=== PATIENT | female | born 1985 | race Caucasian/White ===

== ENCOUNTER → 2016-07-18 | Outpatient (REF) | payer OTHER ==
[2016-07-18 19:32] LABS: REASON FOR REVIEW COMPREHENSIVE REVIEW
== END ==
LOC: M LAB REF 17:41
PROVIDERS: ATTEND Internal Medicine Medical Oncology
DX: D75.1 Secondary polycythemia (principal)

== ENCOUNTER → 2016-10-05 | Outpatient (REF) | payer OTHER | LOC: M LAB REF 17:17 | PROVIDERS: ATTEND Internal Medicine Medical Oncology | DX: D45 Polycythemia vera (principal) ==

== ENCOUNTER 2019-08-17 15:01 | Emergency (ER) | payer MEDICAID, OTHER, SELFPAY ==
[~2019-08-17] VITALS: Ht 162.6 cm; Wt 59.1 kg
[2019-08-17 15:55] LABS: HEMATOCRIT 51.4 % (36.0-47.0); HEMOGLOBIN 15.1 g/dl (12.0-15.5); MEAN CORPUSCULAR HEMOGLOBIN 25.5 pg (27.0-33.0); MEAN CORPUSCULAR HGB CONC 29.4 g/dl (32.0-36.5); MEAN CORPUSCULAR VOLUME 86.7 fl (80.0-96.0); PLATELET COUNT, AUTOMATED 176 10^3/uL (150-450); RED BLOOD COUNT 5.93 10^6/uL (4.00-5.40); WHITE BLOOD COUNT 5.7 10^3/uL (4.0-10.0)
[2019-08-17 16:04] LABS: INR 1.07; PROTHROMBIN TIME 13.6 SECONDS (11.8-14.0)
[2019-08-17 16:12] LABS: ATYPICAL LYMPH 14 % (0-5); BASOPHILS 1 % (0-1); EOSINOPHILS 1 % (0-3); LYMPHOCYTES 15 % (16-44); MONOCYTES 7 % (0-5); NEUTROPHILS 55 % (28-66)
[2019-08-17 16:13] LABS: OVALOCYTES 1+; POLYCHROMASIA 1+
[2019-08-17 16:14] LABS: MICROCYTOSIS 2+
[2019-08-17 16:15] LABS: PLATELET ESTIMATE NORMAL (NORMAL)
[2019-08-17 16:24] LABS: HCG, SERUM QUALITATIVE NEGATIVE (NEGATIVE)
[2019-08-17 16:25] LABS: ALBUMIN 3.8 GM/DL (3.2-5.2); ALT/SGPT 19 U/L (12-78); BILIRUBIN,DIRECT 0.2 MG/DL (0.0-0.2); BILIRUBIN,TOTAL 0.4 MG/DL (0.2-1.0); BLOOD UREA NITROGEN 15 MG/DL (7-18); CALCIUM LEVEL 8.6 MG/DL (8.5-10.1); CARBON DIOXIDE LEVEL 27 MEQ/L (21-32); CHLORIDE LEVEL 110 MEQ/L (98-107); CK-MB VALUE MASS < 1.0 NG/ML (<3.6); CPK CREATINE PHOSPHOKINASE 29 U/L (26-192); CREATININE FOR GFR 0.54 MG/DL (0.55-1.30); GLOMERULAR FILTRATION RATE > 60.0 (>60); GLUCOSE, FASTING 106 MG/DL (70-100); LIPASE 171 U/L (73-393); MB/CK RELATIVE INDEX 3.45 (< OR =4); POTASSIUM SERUM 3.6 MEQ/L (3.5-5.1); SODIUM LEVEL 142 MEQ/L (136-145); TOTAL PROTEIN 6.9 GM/DL (6.4-8.2); TROPONIN I < 0.02 NG/ML (< 0.10)
[2019-08-17 16:48] LABS: MONO SCRN NEGATIVE (NEGATIVE)
--- NOTE | 2019-08-17 16:53 | REP ---
Portable chest: Single view. History: Chest pain. Comparison study: No comparison study. Findings: The lungs are well inflated and clear. Monitoring electrodes overlie the chest. Pleural angles are sharp. Heart size is normal. No bony abnormalities seen. Pulmonary vasculature is not increased. Impression: Negative portable chest x-ray. Electronically Signed by Raza Merritt MD 08/17/2019 04:43 P
[2019-08-17] MEDS ORDERED: ISOVUE-370 76% 100ML VIAL (Q9967) As Ordered ONE (17:26)
[2019-08-17 17:32] LABS: C REACTIVE PROTEIN QUANTITATIV < 0.30 MG/DL (0.00-0.30); LDH LACTATE DEHYDROGENASE 218 U/L (84-246)
--- NOTE | 2019-08-17 18:02 | REPVR ---
PROCEDURE INFORMATION: Exam: CT Head Without Contrast Exam date and time: 08/17/2019 5:22 PM Age: 34 years old Clinical indication: Numbness / parasthesia; Left; Additional info: Facial parasthesia- left TECHNIQUE: Imaging protocol: Computed tomography of the head without contrast. Axial and coronal reformatted images were created and reviewed. Radiation optimization: All CT scans at this facility use at least one of these dose optimization techniques: automated exposure control; mA and/or kV adjustment per patient size (includes targeted exams where dose is matched to clinical indication); or iterative reconstruction. COMPARISON: No relevant prior studies available. FINDINGS: Brain: No CT evidence of acute intracranial hemorrhage or acute territorial infarction. No significant mass effect or midline shift. Basal cisterns patent. Ventricles: Normal in size and configuration. Bones/joints: No acute osseous abnormality. Sinuses: Grossly unremarkable. Mastoid air cells: Grossly unremarkable. Soft tissues: Grossly unremarkable. IMPRESSION: No CT evidence of acute intracranial pathology. Electronically signed by: Geovanny Andujar On 08/17/2019 18:01:43 PM
--- NOTE | 2019-08-17 18:11 | REPVR ---
PROCEDURE INFORMATION: Exam: CT Angiography Chest With Contrast Exam date and time: 08/17/2019 5:22 PM Age: 34 years old Clinical indication: Chest pain; Additional info: Chest pain, polycythemia TECHNIQUE: Imaging protocol: Computed tomographic angiography of the chest with intravenous contrast. Axial, coronal and sagittal reformatted images were created and reviewed. 3D rendering: MIP and/or 3D reconstructed images were created by the technologist. Radiation optimization: All CT scans at this facility use at least one of these dose optimization techniques: automated exposure control; mA and/or kV adjustment per patient size (includes targeted exams where dose is matched to clinical indication); or iterative reconstruction. Contrast material: ISOVUE 370; Contrast volume: 75 ml; Contrast route: IV; COMPARISON: CR PORTABLE CHEST X-RAY 08/17/2019 4:29 PM FINDINGS: Pulmonary arteries: Contrast opacification satisfactory. No intraluminal filling defect. Aorta: Unremarkable. No aneurysm or dissection. Lungs: Unremarkable. No consolidation. No mass. Pleural space: Unremarkable. No pneumothorax. No pleural effusion. Heart: Unremarkable. No cardiomegaly. No pericardial effusion. Lymph nodes: No pathologically enlarged lymph nodes. Bones/joints: No acute osseous abnormality. Soft tissues: Unremarkable. IMPRESSION: No CT evidence of pulmonary embolism. Electronically signed by: Geovanny Andujar On 08/17/2019 18:10:44 PM
--- NOTE | 2019-08-17 18:49 | ECGEPIP ---
[facility] - ED Test Date: 2019-08-17 Pat Name: JOSELUIS KAPOOR Department: Room: - Gender: Female Solutions Specialist: JKendy : [id number] Requested By: Tee Lee Order Number: [id number] Reading MD: Elise Draper Measurements Intervals [place] Rate: 77 P: 49 NC: 132 QRS: 49 QRSD: 95 T: 39 QT: 375 QTc: 427 Interpretive Statements SINUS RHYTHM WITH SINUS ARRHYTHMIA NSTTW abnormalities NO PRIOR Electronically Signed on 08-17-2019 18:48:48 EST by Elise Draper
[2019-08-17] MEDS ORDERED: ASPIRIN 81 MG CHEW TABLET PO ONE (19:15)
[2019-08-17] MEDS ORDERED: [UNRECOGNIZED DRUG - OTHER] (19:26)
[2019-08-17] MEDS ORDERED: ASPI-255 PO (19:27)
[2019-08-17 19:54] VITALS: BP 123/63
[2019-08-17 20:04] LABS: FERRITIN 8 NG/ML (8-252); IRON (FE) 43 UG/DL (50-170); PERCENT SATURATION 12.2 % (13.2-45.0); TOTAL IRON BINDING CAPACITY 352 UG/DL (250-450)
== END 2019-08-17 19:55 | disposition home or self-care (01) ==
LOC: M ED 15:01
DX: D45 Polycythemia vera (principal); R06.02 Shortness of breath; Z79.82 Long term (current) use of aspirin
CPT/HCPCS: 70450; 71045; 71275; 80048; 80076; 82550; 82553; 82728; 83550; 83615; 83690; 84484; 84703; 85025; 85610; 85652; 86140; 86308; 86617; 93005; 93041; 94760; 99284; Q9967

== ENCOUNTER 2019-08-18 08:28 | Outpatient (CLI) | payer MEDICAID ==
[~2019-08-18] VITALS: Ht 162.6 cm; Wt 130.0 kg
[~2019-08-18 08:28] MED LIST: ASPI-255 PO; [UNRECOGNIZED DRUG - OTHER]
[2019-08-18 09:39] VITALS: BP 120/67
[2019-08-18 10:15] VITALS: BP 102/57
== END 2019-08-18 10:40 | disposition home or self-care (01) ==
LOC: M INFU 08:28 → M OPCLI3 08:28
PROVIDERS: ATTEND Internal Medicine Hematology
DX: D45 Polycythemia vera (principal)

== ENCOUNTER 2019-08-20 13:43 | Outpatient (CLI) | payer MEDICAID ==
[~2019-08-20] VITALS: Ht 162.6 cm; Wt 59.0 kg
[2019-08-20 13:45] VITALS: BP 119/58
[2019-08-20 15:15] VITALS: BP 116/76
== END 2019-08-20 15:15 | disposition home or self-care (01) ==
LOC: M INFU 13:43
PROVIDERS: ATTEND Internal Medicine Hematology
DX: D45 Polycythemia vera (principal)

== ENCOUNTER 2022-03-16 12:09 | Outpatient (CLI) | payer OTHER ==
[~2022-03-16] VITALS: Ht 162.6 cm; Wt 61.0 kg
[2022-03-16 12:20] VITALS: BP 126/61
== END 2022-03-16 13:02 | disposition home or self-care (01) ==
LOC: M INFU 12:09
PROVIDERS: ATTEND Nurse Practitioner
DX: D45 Polycythemia vera (principal)

== ENCOUNTER 2024-05-29 12:00 | Emergency (ER) | payer OTHER ==
[~2024-05-29] VITALS: Ht 162.6 cm; Wt 75.6 kg
[2024-05-29] MEDS: ACETAMINOPHEN 325 MG TAB PO ONE (15:30)
[2024-05-29] MEDS: ONDANSETRON 4MG ORAL DISINTEGRATING TAB PO ONE (15:30)
[2024-05-29 15:32] VITALS: BP 101/52; TEMP 98.6; O2SAT 100
== END 2024-05-29 15:43 | disposition home or self-care (01) ==
LOC: M ED 12:00
DX: O9A.213 Injury, poisoning and certain other consequences of external causes complicating pregnancy, third trimester (principal); S06.0X0A Concussion without loss of consciousness, initial encounter; S00.81XA Abrasion of other part of head, initial encounter; W22.8XXA Striking against or struck by other objects, initial encounter; Y92.009 Unspecified place in unspecified non-institutional (private) residence as the place of occurrence of the external cause; Y93.9 Activity, unspecified; Y99.9 Unspecified external cause status; O09.513 Supervision of elderly primigravida, third trimester; Z3A.31 31 weeks gestation of pregnancy